=== PATIENT | male | born 1980 | race African-American/Black ===

== ENCOUNTER 2017-12-02 21:23 | Emergency (ER) | payer OTHER ==
[~2017-12-02] VITALS: Ht 188 cm; Wt 113.0 kg
[2017-12-02] MEDS ORDERED: IBUPROFEN 800 MG TABLET PO ONE (22:00)
[2017-12-02] MEDS ORDERED: POVIDONE-IODINE 10% 15 ML SOLUTION UD TP ONE (22:00)
[2017-12-02] MEDS ORDERED: AMOX TR/POT CLAV 875 MG/125 MG TABLET PO ONE (22:00)
[2017-12-02] MEDS ORDERED: PERTUSS(ACELL),DIPH,TET VAC/PF 0.5 ML VIAL IM ONE (22:00)
[2017-12-02 22:50] VITALS: BP 143/88
== END 2017-12-02 23:00 | disposition home or self-care (01) ==
LOC: EMS 21:56
DX: S61.401A Unspecified open wound of right hand, initial encounter (principal); H60.11 Cellulitis of right external ear; F17.210 Nicotine dependence, cigarettes, uncomplicated; W50.0XXA Accidental hit or strike by another person, initial encounter; Y93.89 Activity, other specified; Y92.89 Other specified places as the place of occurrence of the external cause; Y99.8 Other external cause status
CPT/HCPCS: 90471; 90715; 99284; 99406